=== PATIENT | female | born 1960 | race Caucasian/White ===

== ENCOUNTER 2018-11-21 09:14 | Emergency (ER) | payer BC, OTHER ==
--- NOTE | 2018-11-21 10:23 | UC ---
Lower Extremity/Ankle HPI - HPI Summary HPI Summary: 58 y/o female presents to the urgent care c/o left posterior thigh w/ a bruise and pain s/p slipping at work last 11/17/2018. 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 Seh was able to walk w/ mild limping after injury. She denies injury to her Rt hip. The next day she noticed a big bruise in her posterior Thigh that has increased in pain w/ the days. Pt states pain is worse , and sharp 4/10 w/ sitting. She has to travel to work 45 minus and it is very uncomfortable and painful. Pt has been taken Advil 400mg PO every day to alelviate symptoms and has applied cold compresses. Pt denies Hx of DVT, but 2 years ago a RT lower leg vein rupture and she had surgery repair done. Pt denies SOB, palpitation, recent long travel, chest pain, ESPARZA, dizziness, abdominal pain, N/V/D. - History of Current Complaint Chief Complaint: UCLowerExtremity Stated Complaint: rt leg injury Time Seen by Provider: 11/21/18 10:12 Hx Obtained From: Patient ?: No - menopausal Onset/Duration: Sudden Onset, Lasting Weeks - 5 days, Still Present Severity Initially: Moderate Severity Currently: Moderate Pain Intensity: 4 - at touch or sitting Pain Scale Used: 0-10 Numeric Aggravating Factor(s): Other - sitting Alleviating Factor(s): Rest, OTC Meds Able to Bear Weight: Yes - Risk Factors Gout Risk Factors: Negative DVT Risk Factors: Negative Septic Arthritis Risk Factor: Negative - Allergies/Home Medications Allergies/Adverse Reactions: Allergies Allergy/AdvReac Type Severity Reaction Status Date / Time Penicillins Allergy Intermediate Rash Verified 11/21/18 09:36 Sulfa (Sulfonamide Allergy Altered Verified 11/21/18 09:36 Antibiotics) Mental Status ENVIRONMENTAL/SEASON HAYFEVER Allergy NASAL Uncoded 01/04/15 15:12 CONGESTION Home Medications: Home Medications Rosuvastatin Calcium [Crestor] 5 mg PO DAILY WITH MEAL 11/21/18 [History Confirmed 11/21/18] Sertraline* [Zoloft*] 12.5 mg PO DAILY 11/21/18 [History Confirmed 11/21/18] PMH/Surg Hx/FS Hx/Imm Hx Previously Healthy: Yes Endocrine History: Dyslipidemia Other Respiratory History: seasonal allergies Psychological History: Depression - Surgical History Surgical History: Yes Surgery Procedure, Year, and Place: tonsillectomy. 2 years ago - vein removed from right leg - Family History Family History: dyslipidemia - Social History Occupation: Employed Part-time Alcohol Use: Rare Substance Use Type: None Smoking Status (MU): Never Smoked Tobacco Review of Systems All Other Systems Reviewed And Are Negative: Yes Constitutional: Positive: Negative Skin: Positive: Bruising - posterior RT thigh and RT knee w/ a moderate bruise s /p fall Eyes: Positive: Negative ENT: Positive: Negative Respiratory: Positive: Negative Cardiovascular: Positive: Negative Gastrointestinal: Positive: Negative Genitourinary: Positive: Negative Motor: Positive: Negative Neurovascular: Positive: Negative Musculoskeletal: Positive: Decreased ROM - RT thigh, Other: - RT thigh pain s/p fall Neurological: Positive: Negative Psychological: Positive: Negative Is Patient Immunocompromised?: No Physical Exam - Summary Physical Exam Summary: Vital signs reviewed Appearance: Well-Appearing, No Pain Distress, Well-Nourished, Obese female sitting in the examining table w/o any apparent pain distress Eyes: Positive: Conjunctiva Clear - PERRLA< RIDGE, fundi grossly WNL ENT: Positive: Normal ENT inspection, Hearing grossly normal, Pharynx normal, TMs normal, Uvula midline Neck: Positive: Supple, Nontender, No Lymphadenopathy Respiratory: Positive: Chest non-tender, Lungs clear, Normal breath sounds, No respiratory distress Cardiovascular: Positive: RRR, No Murmur, Pulses Normal, Brisk Capillary Refill Abdomen Description: Positive: Nontender, No Organomegaly, Soft. Negative: CVA Tenderness (R), CVA Tenderness (L) Bowel Sounds: Positive: Present Extremities: R extremity without deformity or asymmetry when compared to the L. No soft tissue swelling or edema. No overlying erythema, warmth, moderate bruise in the posterior RT thigh and knee about 17 cm x 8cm in size, tender to palpation. No lesions or break in skin integrity. Diameter of thighs are are equal Soft tissues of posterior lower legs are soft, supple, nontender and no palpable cords or evidence of thrombophlebitis. No evidence of gangrene or compartment syndrome. Negative Homans sign. Positive mild varicose veins observed,positive scare on the distal RT lower leg from previous surgery. No proximal lymphangitis or lymphadenopathy. Positive sensation over B/l lower legs , positive pulses, capillary refill intact and brisk. Decreaser ROM fo RT thigh due to pain. Neurological Exam: Normal Psychological Exam: Normal Skin Exam: Normal Triage Information Reviewed: Yes Vital Signs: Initial Vital Signs Temp 99.9 F 11/21/18 09:30 Pulse 87 11/21/18 09:30 Resp 18 11/21/18 09:30 BP 132/75 11/21/18 09:30 Pulse Ox 100 11/21/18 09:30 Lower Extremity Course/Dx - Course Course Of Treatment: 58 y/o female presents to the urgent care c/o left posterior thigh w/ a bruise and pain s/p slipping at work last 11/17/2018. 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 Seh was able to walk w/ mild limping after injury. She denies injury to her Rt hip. The next day she noticed a big bruise in her posterior Thigh that has increased in pain w/ the days. Pt states pain is worse , and sharp 4/10 w/ sitting. She has to travel to work 45 minus and it is very uncomfortable and painful. Pt has been taken Advil 400mg PO every day to alelviate symptoms and has applied cold compresses. Pt denies Hx of DVT, but 2 years ago a RT lower leg vein rupture and she had surgery repair done. Pt denies SOB, palpitation, recent long travel, chest pain, ESPARZA, dizziness, abdominal pain, N/V/D. Hx obtained. Pt Pt is hemodynamically stable, A&OX3 , vital: WNL , she has w/ a moderate bruise in the posterior RT thigh and knee about 17 cm x 8cm in size, tender to palpation. No lesions or break in skin integrity. Diameter of thighs are are equal on examination. Duplex ultrasound ordered to r/o DVT or any soft tissue injury, Impression: no evidence of DVT identified, fluid collection in the Rt posterior thigh measuring 8.4x2.0x4.1 cm as per radiologist. Pt w/ a hematoma. Pt educated on results and explained that even though results are negative, she shouldn't travel until his symptoms completely resolved. Seh should massage the area an applied warm compresses. Take Ibuprofen PO prn, elevated her leg, rest and avoid strenuous exercise. If not improvement of symptoms to f/u w/ her PCP in 3 week for further treatment. D /C instructions explained. Pt understood and agreed w/ plan of care. Pt left the clinic hemodynamically stable, A&OX3 - Differential Dx/Diagnosis Differential Diagnosis/HQI/PQRI: Compartment Syndrome, Contusion, DVT, Fracture (Closed), Sprain, Strain, Tendonitis, Other - hematoma, muscle tear Provider Diagnosis: Hematoma of right thigh Discharge - Sign-Out/Discharge Documenting (check all that apply): Patient Departure - D/c home All imaging exams completed and their final reports reviewed: Yes - Discharge Plan Condition: Stable Disposition: HOME Prescriptions: Ibuprofen TAB* [Motrin TAB* 800 MG] 800 mg PO Q6H PRN #30 tab PRN Reason: Pain Patient Education Materials: Hematoma (ED) Forms: *Work Release Referrals: Riky Segundo MD [Primary Care Provider] - 3 Days Additional Instructions: 1-Please take ibuprofen PO q6-8hrs prn as instructed after meals to alleviate pain and swelling. Increase fluid intake, eat well, rest and avoid strenuous exercise. Massage your posterior thigh to soften your hematoma, apply warm compresses, elevate your leg at times and avoid sitting for long periods of time. 2-If symptoms do not improve or worsen please f/u with your PCP in 3 days for further evaluation and treatment. - Billing Disposition and Condition Condition: STABLE Disposition: Home
[2018-11-21 11:51] VITALS: BP 104/57
--- NOTE | 2018-11-22 07:11 | UC ---
- Progress Note Progress Note: Patient Name: TSERING TOVAR Medical Record#: [id number] Ordering Physician: Ivania RUSSO Acct.#: [id number] : 1960 Age: 58 Sex: F Location: [facility] Exam Date: 11/21/18 1035 ADM Status: REG ER Order Information: VL LOWER EXT VEINS RIGHT Accession Number: [id number] CPT: 84997 Indication: Leg edema. Duplex Doppler sonography of the deep venous system of the right lower extremity deep venous system was performed. Bilaterally the common femoral veins appear patent and compressible. Right proximal greater saphenous vein, proximal deep femoral vein, femoral vein, popliteal vein , posterior tibial veins and peroneal veins appear patent and compressible.Fluid collection in the right posterior thigh measuring 8.4 x 2.0 x 4.1 cm. IMPRESSION: NO EVIDENCE OF DEEP VENOUS THROMBOSIS IS IDENTIFIED. Fluid collection in the right posterior thigh measuring 8.4 x 2.0 x 4.1 cm. <Electronically signed by Darleen Shin MD in [place]> 11/21/18 1148 Dictated By: Darleen Shin MD Dictated Date/Time: 11/21/18 1148 Transcribed Date/Time: 11/21/18 1147 Copy to: CC:Riky Segundo MD; Ivania RUSSO; Joshua Barnes MD Imaging - [facility] Imaging - [facility] Imaging - [facility] [address] [address] ph ([phone]) ph ([phone]) ph ([phone]) This report is only to be considered final once signed by the Provider(s) as displayed in the "<Electronically Signed by >" field (s). Absence of a signature indicates the report is in a draft status and still needs to be finalized. In the event this document was created by someone other than the signing Provider, the individual initiating the document will be listed in the "Entered by:" or "Dictated by:" [email or web address]. 1 of 1 Course/Dx - Diagnoses Provider Diagnoses: Hematoma of right thigh Discharge - Sign-Out/Discharge Documenting (check all that apply): Patient Departure All imaging exams completed and their final reports reviewed: Yes - Discharge Plan Condition: Stable Disposition: HOME Prescriptions: Ibuprofen TAB* [Motrin TAB* 800 MG] 800 mg PO Q6H PRN #30 tab PRN Reason: Pain Patient Education Materials: Hematoma (ED) Forms: *Work Release Referrals: Riky Segundo MD [Primary Care Provider] - 3 Days Additional Instructions: 1-Please take ibuprofen PO q6-8hrs prn as instructed after meals to alleviate pain and swelling. Increase fluid intake, eat well, rest and avoid strenuous exercise. Massage your posterior thigh to soften you hematoma, apply warm compresses, elevate your leg at imes and avoid sitting for long periods of time. 2-If symptoms do not improve or worsen please f/u with your PCP in 3 days for further evaluation and treatment. - Billing Disposition and Condition Condition: STABLE Disposition: Home
== END 2018-11-21 12:35 | disposition home or self-care (01) ==
LOC: UCEAST 09:14
DX: S70.11XA Contusion of right thigh, initial encounter (principal); W01.0XXA Fall on same level from slipping, tripping and stumbling without subsequent striking against object, initial encounter; Y92.219 Unspecified school as the place of occurrence of the external cause; Y99.0 Civilian activity done for income or pay; R60.0 Localized edema; E78.5 Hyperlipidemia, unspecified; F32.9 Major depressive disorder, single episode, unspecified; Z88.0 Allergy status to penicillin; Z88.2 Allergy status to sulfonamides
CPT/HCPCS: 99212; G0463